=== PATIENT | male | born 1950 | race Hispanic/Latino ===

== ENCOUNTER → 2017-12-26 | Outpatient (CLI) | payer MEDICARE ==
[~2017-12-26] MED LIST: PRAV40TA3 PO; TELM1TAB32 PO
== END | disposition home or self-care (01) ==
LOC: RAH 08:38
PROVIDERS: ATTEND Internal Medicine
DX: K57.30 Diverticulosis of large intestine without perforation or abscess without bleeding (principal); M47.895 Other spondylosis, thoracolumbar region; K76.89 Other specified diseases of liver; I70.90 Unspecified atherosclerosis
CPT/HCPCS: 74176

== ENCOUNTER → 2020-11-15 | Outpatient (CLI) | payer OTHER | END | disposition home or self-care (01) | LOC: RAH 08:48 | PROVIDERS: ATTEND Internal Medicine | DX: M54.16 Radiculopathy, lumbar region (principal) | CPT/HCPCS: 72100 ==

== ENCOUNTER → 2023-07-02 | Outpatient (CLI) | payer OTHER | END | disposition home or self-care (01) | LOC: OIH 09:40 | PROVIDERS: ATTEND Internal Medicine | DX: M16.11 Unilateral primary osteoarthritis, right hip (principal); M25.551 Pain in right hip; M70.60 Trochanteric bursitis, unspecified hip; M47.26 Other spondylosis with radiculopathy, lumbar region | CPT/HCPCS: 72100; 73502 ==